=== PATIENT | male | born 1940 | race Caucasian/White ===

== ENCOUNTER 2017-02-21 00:11 | Emergency (ER) | payer BC, OTHER ==
[~2017-02-21] VITALS: Ht 170.2 cm; Wt 98.6 kg
[~2017-02-21 00:11] MED LIST: AMLO-3 PO; ASPEC81 PO; CHOL200010 PO; GLUCTAB7 PO; HYDR12.55 PO; OMEP20CA59 PO; TRIA3AER NAE
[2017-02-21 00:18] VITALS: TEMP 37.1; Ht 170.2 cm; Wt 98.6 kg
[2017-02-21 00:23] VITALS: O2SAT 95
[2017-02-21] MEDS ORDERED: NITROGLYCERIN 0.4 MG SL PER TAB CHARGE SL STA (00:37)
[2017-02-21] MEDS ORDERED: ASPIRIN 324 MG CHEW PO STA (00:37)
--- NOTE | 2017-02-21 00:45 | EMERGENCY ROOM VISIT NOTE ---
History Report prepared by Leonie: Sendy Brito Under the Supervision of: Dr. Kamar Iglesias M.D. First contact with patient: 00:16 Chief Complaint: CHEST PAIN Stated Complaint: CHEST PAIN Nursing Triage Summary: Pt complains of left sided chest pain that started at 9pm. Denies any SOB, nausea, or diaphoresis. Denies any cardiac history. Pt unsure if he pulled something today because he was going through his closet trying on clothes. History of Present Illness The patient is a 76 year old male who presents to the Emergency Room with complaints of persistent left sided chest pain starting 2100 today. He tried taking Tylenol to no significant relief. The pain is currently improved. The pain does not radiate into his arm or neck. He denies any heart palpitations. He denies any history of heart problems. He has had 2 episodes of tachycardia in the past. He last had a stress test several years ago. He has a history of hypertension. He used to smoke from the ages of [age]. His father had a history of heart problems. He denies any history of high cholesterol or diabetes. He notes that he was trying on a lot of clothes today. He had a baby aspirin today. Source of History: patient Onset: 2100 Position: chest (left) Quality: other (pain) Timing: other (persistent) Modifying Factors (Relieving): tylenol Associated Symptoms: No neck pain Note: Pt denies arm pain, palpitations. Review of Systems See HPI for pertinent positives & negatives. A total of 10 systems reviewed and were otherwise negative. 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 Family History Heart disease Hypertension Social History Smoking Status: Former Smoker Alcohol Use: occasionally Marital Status: Housing Status: lives with significant other Current/Historical Medications Scheduled Amlodipine Besylate-Olmesartan (Amlodipine/Olmesartan Med 5-40 mg), 1 TAB PO DAILY Aspirin (Aspirin Ec), 81 MG PO BID Cholecalciferol (Vitamin D), 2,000 INTER.UNIT PO DAILY Fish Oil ([place]-3), 1 CAP PO DAILY Mxgwguwjaii-Zxxeidfutav-Dkv C- (Glucosamine Chondroitin), 1,500 MG PO DAILY Hydrochlorothiazide (Hydrochlorothiazide), 1 TAB PO DAILY Scheduled PRN Omeprazole (Prilosec), 20 MG PO DAILY PRN for Indigestion Allergies Coded Allergies: No Known Allergies (Unverified , 02/21/17) Physical Exam Vital Signs Date Time Temp Pulse Resp B/P (MAP) Pulse Ox O2 Delivery O2 Flow Rate FiO2 02/21/17 03:01 62 18 134/58 98 Room Air 02/21/17 02:45 53 22 02/21/17 01:58 57 18 137/57 02/21/17 00:50 65 125/50 02/21/17 00:30 62 02/21/17 00:23 95 Room Air 02/21/17 00:21 95 02/21/17 00:18 37.1 64 20 166/74 95 Room Air Physical Exam GENERAL: Patient is mildly anxious appearing and in no acute distress. HEENT: No acute trauma, normocephalic atraumatic, mucous membranes moist, no nasal congestion, no scleral icterus. NECK: No stridor, no adenopathy, no meningismus, trachea is midline. LUNGS: No dyspnea. Clear to auscultation and equal bilaterally. No wheeze, no rhonchi. HEART: Regular rate and rhythm. No murmurs, rubs, gallops appreciated. ABDOMEN: Soft, nontender, bowel sounds positive, no masses appreciated, no peritonitis. BACK: No midline tenderness, no CVA tenderness EXTREMITIES: Normal motion all extremities, no cyanosis, no edema. NEUROLOGIC: Alert and oriented, no acute motor or sensory deficits, no focal weakness, cranial nerves grossly intact. SKIN: No rash, no jaundice, no diaphoresis. Medical Decision & Procedures ER Provider Diagnostic Interpretation: X ray results are stated below per my interpretation: Chest: 1 view: No infiltrate, no effusion, normal cardiac border. Similar to previous. Laboratory Results 02/21/17 00:30 Red Blood Count 4.90, Mean Corpuscular Volume 87.1, Mean Corpuscular Hemoglobin 31.2, Mean Corpuscular Hemoglobin Concent 35.8, Mean Platelet Volume 12.4, Neutrophils (%) (Auto) 49.3, Lymphocytes (%) (Auto) 38.9, Monocytes (%) (Auto) 8.4, Eosinophils (%) (Auto) 2.8, Basophils (%) (Auto) 0.4, Neutrophils # (Auto) 4.72, Lymphocytes # (Auto) 3.73, Monocytes # (Auto) 0.81, Eosinophils # (Auto) 0.27, Basophils # (Auto) 0.04 02/21/17 00:30 Test 02/21/17 00:30 02/21/17 02:47 White Blood Count 9.59 K/uL (4.8-10.8) Red Blood Count 4.90 M/uL (4.7-6.1) Hemoglobin 15.3 g/dL (14.0-18.0) Hematocrit 42.7 % (42-52) Mean Corpuscular Volume 87.1 fL (80-100) Mean Corpuscular Hemoglobin 31.2 pg (25-34) Mean Corpuscular Hemoglobin Concent 35.8 g/dl (32-36) Platelet Count 192 K/uL (130-400) Mean Platelet Volume 12.4 fL (7.4-10.4) Neutrophils (%) (Auto) 49.3 % Lymphocytes (%) (Auto) 38.9 % Monocytes (%) (Auto) 8.4 % Eosinophils (%) (Auto) 2.8 % Basophils (%) (Auto) 0.4 % Neutrophils # (Auto) 4.72 K/uL (1.4-6.5) Lymphocytes # (Auto) 3.73 K/uL (1.2-3.4) Monocytes # (Auto) 0.81 K/uL (0.11-0.59) Eosinophils # (Auto) 0.27 K/uL (0-0.5) Basophils # (Auto) 0.04 K/uL (0-0.2) RDW Standard Deviation 44.4 fL (36.4-46.3) RDW Coefficient of Variation 14.0 % (11.5-14.5) Immature Granulocyte % (Auto) 0.2 % Immature Granulocyte # (Auto) 0.02 K/uL (0.00-0.02) Anion Gap 12.0 mmol/L (3-11) Est Creatinine Clear Calc Drug Dose 68.1 ml/min Estimated GFR () 83.2 Estimated GFR (Non- 71.8 BUN/Creatinine Ratio 20.3 (10-20) Calcium Level 8.6 mg/dl (8.5-10.1) Troponin I < 0.015 ng/ml (0-0.045) Chemistry Specimen Hemolysis Bedside Troponin I < 0.030 ng/ml (0-0.045) Laboratory results as reviewed by me. Medications Administered Medications (Trade) Dose Ordered Sig/Venkat Route Start Time Stop Time Status Last Admin Dose Admin Aspirin (Aspirin Chew) 324 mg NOW STAT PO 02/21/17 00:37 02/21/17 00:38 DC 02/21/17 00:42 324 MG Nitroglycerin (Nitrostat Tab) 0.4 mg PRN STAT SL 02/21/17 00:37 02/21/17 00:38 DC 02/21/17 00:42 0.4 MG ECG Indication: chest pain Rate (beats per minute): 62 Rhythm: normal sinus Findings: RBBB, no acute ischemic change, no ectopy Comparison ECG Date: 10-Apr-2015 Change: Similar to previous. ED Course 0030: The patient was evaluated in room A10. A complete history and physical exam was performed. 0037: Nitroglycerin 0.4 mg SL, Aspirin 324 mg PO. 0144: I reevaluated the patient. I had a long discussion with the patient. He does not want to stay the night, but he is willing to stay for a 2nd set of cardiac enzymes. 0305: I reevaluated the patient. He is feeling well. He wishes to go home and follow up with his PCP on Wednesday to discuss further cardiac testing. He is aware that he can return at any time for further evaluation especially if the chest pain returns. I discussed results and discharge instructions: he verbalized understanding and agreement. The patient is ready for discharge. Medical Decision Differential: Cardiac Ischemia (STEMI, NSTEMI, Unstable Angina, etc), Aortic Dissection, Arrhythmia, Pulmonary Embolism, Pneumonia, Pneumothorax, MSK, Infectious, Pericarditis/Myocarditis, Esophageal Rupture, Gastrointestinal, amongst other pathologies entertained. 76 yr old male arrives with complaint of left chest pain. On and off seems reproducible with movement. Initial EKG unremarkable and similar to previous. Initial Trop negative. Labs look good. CXR clear. Discussed with his risk factors standard would be to bring her in for further evaluation. He is not interested in staying in hospital but after discussing options, he is willing to stick around for short period second set enzymes. Reviewed this is not total guarantee of rule out but if better than just going home right away. Fortunately second trop negative. Patient discharged to home with strict instructions to call PCP on wednesday for further workup and if return of symptoms rted or call 911 immediately. Symptoms are not consistent with PE, Dissection. Medication Reconcilliation Current Medication List: was personally reviewed by me Blood Pressure Screening Patient's blood pressure: Normal blood pressure Blood pressure disposition: Did not require urgent referral Impression Primary Impression: Left sided chest pain Scribe Attestation The scribe's documentation has been prepared under my direction and personally reviewed by me in its entirety. I confirm that the note above accurately reflects all work, treatment, procedures, and medical decision making performed by me. Departure Information Dispostion Home / Self-Care Referrals Kelli Bettencourt D.O. (PCP) Patient Instructions ED Chest Pain Atypical Unkn Cause, My [facility]
[2017-02-21 00:57] LABS: BASO % 0.4 %; BASO ABS # 0.04 K/uL (0-0.2); COMPLETE YES; EOS % 2.8 %; HEMATOCRIT 42.7 % (42-52); IG% 0.2 %; LYMPH % 38.9 %; LYMPH ABS # 3.73 K/uL (1.2-3.4); MEAN CELL VOLUME 87.1 fL (80-100); MEAN CORPUSCULAR HEMOGLOBIN 31.2 pg (25-34); MEAN CORPUSCULAR HGB CONC 35.8 g/dl (32-36); MEAN PLATELET VOLUME 12.4 fL (7.4-10.4); MONO % 8.4 %; NEUT % 49.3 %; PLATELET COUNT 192 K/uL (130-400); WHITE BLOOD COUNT 9.59 K/uL (4.8-10.8)
[2017-02-21] MEDS ORDERED: ASPI81TA28 PO (01:08)
[2017-02-21] MEDS ORDERED: [UNRECOGNIZED DRUG - CODE] PO (01:08)
[2017-02-21] MEDS ORDERED: OMEG10007 PO (01:09)
[2017-02-21 01:32] LABS: BLOOD UREA NITROGEN 20 mg/dl (7-18); BUN/CREATININE RATIO 20.3 (10-20); CALCIUM 8.6 mg/dl (8.5-10.1); CARBON DIOXIDE 22 mmol/L (21-32); CHLORIDE 107 mmol/L (98-107); GLUCOSE 145 mg/dl (70-99); SODIUM 141 mmol/L (136-145)
[2017-02-21 02:08] LABS: POTASSIUM 3.6 mmol/L (3.5-5.1)
[2017-02-21 03:01] VITALS: BP 134/58; PULSE 62; O2SAT 98
--- NOTE | 2017-02-21 06:25 | DIAGNOSTIC IMAGING REPORT ---
CHEST ONE VIEW PORTABLE CLINICAL HISTORY: 76 years-old Male presenting with Chest Pain, chest discomfort. TECHNIQUE: Portable upright AP view of the chest was obtained. COMPARISON: 04/10/2015. FINDINGS: Cardiac silhouette is normal in size, decreased in size from prior. Prominence of pulmonary vasculature. Suggestion of multiple calcified granulomas. Minimal nodular opacity suggested in the left lower lung. No pleural effusion or pneumothorax. Degenerative changes of the thoracic spine. Upper abdomen normal. IMPRESSION: 1. Nodular opacity in the left lower lung. This may represent a nipple shadow, however, further evaluation with dedicated PA and lateral views with nipple markers recommended. 2. Mild pulmonary vascular prominence could suggest volume overload. No pulmonary edema. Electronically signed by: Williams Huerta M.D. 02/21/2017 6:24 AM Dictated Date/Time: 02/21/2017 6:21 AM
== END 2017-02-21 03:16 | disposition home or self-care (01) ==
LOC: C.EDB 00:12 → C.EDA 03:16
DX: R07.9 Chest pain, unspecified (principal); I45.10 Unspecified right bundle-branch block; K57.32 Diverticulitis of large intestine without perforation or abscess without bleeding; Z90.49 Acquired absence of other specified parts of digestive tract; Z87.891 Personal history of nicotine dependence; Z79.82 Long term (current) use of aspirin; Z79.899 Other long term (current) drug therapy; Z82.49 Family history of ischemic heart disease and other diseases of the circulatory system